=== PATIENT | male | born 1975 | race Hispanic/Latino ===

== ENCOUNTER 2024-04-04 12:53 | Inpatient (IN) | payer OTHER ==
[~2024-04-04] VITALS: Ht 167.6 cm; Wt 85.3 kg
[~2024-04-04 12:53] MED LIST: FAMOTIDINE20 MG PO; ONDANSETRON ODT4 MG PO
[2024-04-04 13:22] LABS: BASOPHILS % 0.2 % (0.0-1.0); EOSINOPHILS # (AUTO) 0.1 (0.0-0.4); EOSINOPHILS % 1.2 % (0.0-6.0); HEMATOCRIT 35.6 % (38.2-49.6); HEMOGLOBIN 13.1 g/dL (14.0-18.0); LYMPHOCYTES # (AUTO) 0.7 (1.0-3.2); LYMPHOCYTES % 6.2 % (18.0-39.1); MEAN CORPUSCULAR HEMOGLOBIN 35.1 pg (28-32); MEAN CORPUSCULAR HGB CONC 36.8 g/dL (31-35); MEAN CORPUSCULAR VOLUME 95.4 fL (81-99); MONOCYTES # (AUTO) 1.2 (0.2-0.8); MONOCYTES % 10.6 % (4.4-11.3); NEUTROPHILS # (AUTO) 9.1 (2.1-6.9); NEUTROPHILS % 81.4 % (38.7-80.0); PLATELET COUNT 139 x10e3/uL (140-360); RED BLOOD COUNT 3.73 x10e6/uL (4.3-5.7); RED CELL DISTRIBUTION WIDTH 15.5 % (11.7-14.4); WHITE BLOOD COUNT 11.21 x10e3/uL (4.8-10.8)
[2024-04-04 13:35] LABS: INR 1.11; PARTIAL THROMBOPLASTIN TIME 34.3 seconds (23.8-35.5); PROTHROMBIN TIME 15.1 seconds (11.9-14.5)
[2024-04-04 13:41] LABS: ABG HCO3 22 mmol/L (22-26); ABG PCO2 20 mmHg (35-45); ABG PH 7.65 (7.35-7.45); ABG PO2 101 mmHg (80-105); ABG TCO2 23
[2024-04-04 13:43] LABS: ALANINE AMINOTRANSFERASE 203 IU/L (0-55); ALBUMIN/GLOBULIN RATIO 0.6 (0.8-2.0); ALKALINE PHOSPHATASE 496 IU/L (40-150); ANION GAP 19.3 mmol/L (8-16); BILIRUBIN,TOTAL 2.8 mg/dL (0.2-1.2); BLOOD UREA NITROGEN < 5 mg/dL (7-26); CALCIUM 8.6 mg/dL (8.4-10.2); CARBON DIOXIDE 20 mmol/L (22-29); CHLORIDE 98 mmol/L (98-107); CREATININE, SERUM 0.74 mg/dL (0.72-1.25); EST GLOMERULAR FILTRATION RATE 112 ML/MIN (>=60); GLUCOSE 114 mg/dL (74-118); SODIUM 134 mmol/L (136-145); TOTAL PROTEIN 8.1 g/dL (6.5-8.1)
[2024-04-04 13:48] LABS: BUN/CREATININE RATIO 7 (6-25); POTASSIUM 3.3 mmol/L (3.5-5.1)
[2024-04-04 13:57] LABS: INFLUENZAE A&B ANTIGEN (RAPID) NEGATIVE (NEGATIVE); RESPIRATORY SYNC. VIRUS NEGATIVE (NEGATIVE)
[2024-04-04] MEDS: IBUPROFEN 400 MG TAB PO ONE (14:49)
[2024-04-04] MEDS: SODIUM CHLORIDE 0.9% 1000ML 1,000 ML IV STA ×2 (14:50)
[2024-04-04 14:56] VITALS: TEMP 99.8
[2024-04-04] MEDS ORDERED: SODIUM CHLORIDE 0.9% 1000ML 1,000 ML IV SCH (16:15)
[2024-04-04 16:21] LABS: BILIRUBIN,URINE MODERATE (NEGATIVE); CLARITY,URINE SL CLOUDY (CLEAR); COLOR,URINE AMBER (YELLOW); GLUCOSE, URINE NEGATIVE (NEGATIVE); KETONES,URINE 1+ (NEGATIVE); LEUKOCYTE ESTERASE ,URINE NEGATIVE (NEGATIVE); NITRITE,URINE NEGATIVE (NEGATIVE); PH,URINE 8.5 (5 - 7); PROTEIN,URINE DIPSTICK 2+ (NEGATIVE); URINE UROBILINOGEN 0.2 mg/dL (0.2 - 1)
[2024-04-04 16:33] LABS: AMORPHOUS SEDIMENT,URINE MODERATE (FEW); BACTERIA,URINE FEW /HPF; WBC,URINE (MAN) 0-5 /HPF (0-5)
[2024-04-04] MEDS ORDERED: ATOVAQUONE 750 MG/5 ML SUSP PO SCH (17:00)
[2024-04-04 17:21] VITALS: PULSE 84; RESP 19
[2024-04-04] MEDS: SODIUM CHLORIDE 0.9% 1000ML 1,000 ML IV SCH (18:33)
[2024-04-04] MEDS: CEFTRIAXONE 2 GM in SODIUM CHLORIDE 0.9% 100 ML IV SCH (18:33)
[2024-04-04 19:41] VITALS: BP 114/71; PULSE 83; RESP 18; TEMP 98.9; O2SAT 96
[2024-04-04 21:00] VITALS: BP 114/71; PULSE 83; RESP 18; TEMP 98.9; O2SAT 96
[2024-04-04] MEDS: ATOVAQUONE 750 MG/5 ML SUSP PO SCH (22:21)
[2024-04-04] MEDS ORDERED: BIKTARVY 50-201 EACH PO (22:26)
[2024-04-04] MEDS ORDERED: PAXIL20 MG PO (22:26)
[2024-04-04] MEDS ORDERED: ONDANSETRON HCL 4 MG ORAL DISINTEGRATING TAB PO PRN (23:45)
[2024-04-04 23:50] VITALS: BP 106/68; PULSE 88; RESP 18; TEMP 98.8; O2SAT 98
[2024-04-05] MEDS: DOXYCYCLINE HYCLATE TABLET 100 MG TAB PO SCH (00:27)
[2024-04-05] MEDS: ONDANSETRON HCL INJ 2MG/ML 2ML 2 MG/ML VIAL IV PRN (00:28)
[2024-04-05 03:39] VITALS: BP 107/73; PULSE 100; RESP 18; TEMP 98.5; O2SAT 99
[2024-04-05 05:42] LABS: BASOPHILS % 0.1 % (0.0-1.0); EOSINOPHILS # (AUTO) 0.3 (0.0-0.4); EOSINOPHILS % 4.3 % (0.0-6.0); HEMATOCRIT 31.7 % (38.2-49.6); HEMOGLOBIN 11.2 g/dL (14.0-18.0); LYMPHOCYTES # (AUTO) 0.6 (1.0-3.2); LYMPHOCYTES % 8.2 % (18.0-39.1); MEAN CORPUSCULAR HEMOGLOBIN 34.7 pg (28-32); MEAN CORPUSCULAR HGB CONC 35.3 g/dL (31-35); MEAN CORPUSCULAR VOLUME 98.1 fL (81-99); MONOCYTES # (AUTO) 0.7 (0.2-0.8); MONOCYTES % 9.3 % (4.4-11.3); NEUTROPHILS # (AUTO) 6.1 (2.1-6.9); NEUTROPHILS % 77.5 % (38.7-80.0); PLATELET COUNT 112 x10e3/uL (140-360); RED BLOOD COUNT 3.23 x10e6/uL (4.3-5.7); RED CELL DISTRIBUTION WIDTH 16.2 % (11.7-14.4); WHITE BLOOD COUNT 7.83 x10e3/uL (4.8-10.8)
[2024-04-05 06:14] LABS: ALBUMIN 2.3 g/dL (3.5-5.0); ALBUMIN/GLOBULIN RATIO 0.6 (0.8-2.0); CALCIUM 7.9 mg/dL (8.4-10.2); CREATININE, SERUM 0.59 mg/dL (0.72-1.25); TOTAL PROTEIN 6.3 g/dL (6.5-8.1)
[2024-04-05 06:33] LABS: BILIRUBIN,TOTAL 1.8 mg/dL (0.2-1.2)
[2024-04-05 06:35] LABS: POTASSIUM 3.3 mmol/L (3.5-5.1)
[2024-04-05 07:52] VITALS: BP 108/73; PULSE 83; RESP 18; TEMP 98.4; O2SAT 99
[2024-04-05 08:21] LABS: ANION GAP 14.3 mmol/L (8-16)
[2024-04-05] MEDS ORDERED: DOXYCYCLINE HYCLATE TABLET 100 MG TAB PO SCH (09:00)
[2024-04-05 09:14] LABS: CREATINE KINASE 77 IU/L (30-200)
[2024-04-05 09:18] LABS: TROPONIN I < 0.001 ng/mL (0-0.300)
[2024-04-05] MEDS: PAROXETINE HCL 20 MG TAB PO SCH (09:59)
[2024-04-05] MEDS: FAMOTIDINE 20 MG TAB PO SCH (09:59)
[2024-04-05] MEDS: CYCLOBENZAPRINE HCL 10 MG TAB PO PRN (10:03)
[2024-04-05 12:46] VITALS: BP 113/80; PULSE 78; RESP 18; TEMP 98.6; O2SAT 99
[2024-04-05 15:51] VITALS: BP 115/88; PULSE 91; RESP 18; TEMP 98.6; O2SAT 99
[2024-04-05 16:34] LABS: CREATINE KINASE 88 IU/L (30-200)
[2024-04-05 16:41] LABS: TROPONIN I < 0.001 ng/mL (0-0.300)
[2024-04-05 19:27] VITALS: BP 127/82; PULSE 88; RESP 18; TEMP 99.1; O2SAT 100
[2024-04-05 20:54] LABS: HEPATITIS B SURFACE AG (P) Nonreactive; HEPATITIS C ANTIBODY Nonreactive
[2024-04-05 23:42] VITALS: BP 117/84; PULSE 83; RESP 18; TEMP 99.4; O2SAT 98
[2024-04-06] VITALS (7 sets, daily range): BP systolic 112–126; BP diastolic 79–91; PULSE 79–82; RESP 18–20; TEMP 98.5–98.8; O2SAT 98–100
[2024-04-06 07:15] LABS: HEMATOCRIT 32.4 % (38.2-49.6); HEMOGLOBIN 11.4 g/dL (14.0-18.0); MEAN CORPUSCULAR HEMOGLOBIN 35.3 pg (28-32); MEAN CORPUSCULAR HGB CONC 35.2 g/dL (31-35); MEAN CORPUSCULAR VOLUME 100.3 fL (81-99); RED BLOOD COUNT 3.23 x10e6/uL (4.3-5.7); RED CELL DISTRIBUTION WIDTH 16.9 % (11.7-14.4)
[2024-04-06 07:16] LABS: BASOPHILS % 0.3 % (0.0-1.0); EOSINOPHILS # (AUTO) 0.5 (0.0-0.4); EOSINOPHILS % 5.4 % (0.0-6.0); LYMPHOCYTES # (AUTO) 0.8 (1.0-3.2); LYMPHOCYTES % 8.5 % (18.0-39.1); MONOCYTES # (AUTO) 0.6 (0.2-0.8); MONOCYTES % 6.5 % (4.4-11.3); NEUTROPHILS # (AUTO) 7.7 (2.1-6.9); NEUTROPHILS % 78.8 % (38.7-80.0); PLATELET COUNT 100 x10e3/uL (140-360)
[2024-04-06 07:18] LABS: ANION GAP 15.6 mmol/L (8-16); POTASSIUM 3.6 mmol/L (3.5-5.1)
[2024-04-06 07:19] LABS: CREATININE, SERUM 0.64 mg/dL (0.72-1.25)
[2024-04-06 07:20] LABS: CALCIUM 7.6 mg/dL (8.4-10.2)
[2024-04-06 07:54] LABS: BILIRUBIN,DIRECT 1.5 mg/dL (0.0-0.5); BILIRUBIN,TOTAL 2.3 mg/dL (0.2-1.2); TOTAL PROTEIN 6.2 g/dL (6.5-8.1)
[2024-04-06 08:14] LABS: ALBUMIN 2.2 g/dL (3.5-5.0)
[2024-04-06] MEDS: SODIUM BICARBONATE 650 MG TAB PO SCH (09:43)
[2024-04-06 13:15] LABS: % CD 4 POSITIVE LYMPHOCYTES 3.4 % (30.8-58.5)
[2024-04-06] MEDS: CEFTRIAXONE 2 GM in SODIUM CHLORIDE 0.9% 100 ML IV SCH (17:30)
[2024-04-07] VITALS (7 sets, daily range): BP systolic 110–123; BP diastolic 75–88; PULSE 76–83; RESP 16–20; TEMP 98.6–99.6; O2SAT 98–100
[2024-04-07 07:26] LABS: BASOPHILS % 0.3 % (0.0-1.0); EOSINOPHILS # (AUTO) 0.6 (0.0-0.4); EOSINOPHILS % 6.3 % (0.0-6.0); HEMOGLOBIN 11.3 g/dL (14.0-18.0); LYMPHOCYTES # (AUTO) 0.7 (1.0-3.2); LYMPHOCYTES % 7.7 % (18.0-39.1); MEAN CORPUSCULAR HEMOGLOBIN 36.2 pg (28-32); MEAN CORPUSCULAR HGB CONC 36.5 g/dL (31-35); MEAN CORPUSCULAR VOLUME 99.4 fL (81-99); MONOCYTES # (AUTO) 0.6 (0.2-0.8); NEUTROPHILS # (AUTO) 7.3 (2.1-6.9); NEUTROPHILS % 79.2 % (38.7-80.0); PLATELET COUNT 105 x10e3/uL (140-360); RED BLOOD COUNT 3.12 x10e6/uL (4.3-5.7); WHITE BLOOD COUNT 9.22 x10e3/uL (4.8-10.8)
[2024-04-07 07:45] LABS: ANION GAP 14.4 mmol/L (8-16); CALCIUM 7.7 mg/dL (8.4-10.2); CREATININE, SERUM 0.57 mg/dL (0.72-1.25)
[2024-04-07 07:49] LABS: POTASSIUM 3.4 mmol/L (3.5-5.1)
[2024-04-07] MEDS: ACETAMINOPHEN 325 MG TAB PO PRN (15:14)
[2024-04-07] MEDS: SODIUM BICARBONATE 650 MG TAB PO SCH (15:14)
[2024-04-08] VITALS: BP 122/84; PULSE 80; RESP 18; TEMP 99.6; O2SAT 100
[2024-04-08 08:00] VITALS: BP 120/81; PULSE 90; RESP 17; TEMP 98.7; O2SAT 99
[2024-04-08 08:29] VITALS: BP 120/81; PULSE 90; RESP 17; TEMP 98.7; O2SAT 100
[2024-04-08 12:50] VITALS: BP 135/75; PULSE 92; RESP 17; TEMP 98.6; O2SAT 99
[2024-04-08] MEDS ORDERED: SODIUM BICARBO650 MG PO (14:51)
[2024-04-08] MEDS ORDERED: ATOVAQUONE750 MG/5 M PO (14:53)
[2024-04-08] MEDS ORDERED: ONDANSETRON ODT4 MG PO (14:53)
[2024-04-14 18:07] LABS: ABG HCO3 22 mmol/L (22-26); ABG PCO2 20 mmHg (35-45); ABG PH 7.65 (7.35-7.45); ABG PO2 101 mmHg (80-105); ABG TCO2 23
== END 2024-04-08 16:16 | disposition home or self-care (01) | DRG 975 ==
LOC: ER 13:00 → ERHOLD 16:17 → MED/SURG3 17:59
PROVIDERS: ADMIT Internal Medicine; ATTEND Internal Medicine
PROC: 3E0333Z Introduction of Anti-inflammatory into Peripheral Vein, Percutaneous Approach (ICD-10-PCS; principal; 2024-04-04)
PROC: 4A133R1 Monitoring of Arterial Saturation, Peripheral, Percutaneous Approach (ICD-10-PCS; 2024-04-04)
DX: A41.9 Sepsis, unspecified organism (principal); E87.20 Acidosis, unspecified; B20 Human immunodeficiency virus [HIV] disease; R65.20 Severe sepsis without septic shock; J20.9 Acute bronchitis, unspecified; R16.1 Splenomegaly, not elsewhere classified; R91.1 Solitary pulmonary nodule; D64.9 Anemia, unspecified; D69.6 Thrombocytopenia, unspecified; E66.9 Obesity, unspecified; Z68.30 Body mass index [BMI] 30.0-30.9, adult; R74.01 Elevation of levels of liver transaminase levels; Z11.52 Encounter for screening for COVID-19; Z91.141 Patient's other noncompliance with medication regimen due to financial hardship; Z90.49 Acquired absence of other specified parts of digestive tract; Z86.16 Personal history of COVID-19; Z88.1 Allergy status to other antibiotic agents; Z88.2 Allergy status to sulfonamides; Z88.5 Allergy status to narcotic agent; F17.210 Nicotine dependence, cigarettes, uncomplicated
CPT/HCPCS: 36415; 36600; 71045; 71260; 74177; 80048; 80053; 80061; 80076; 81001; 82550; 82805; 83036; 83605; 84484; 85025; 85610; 85730; 86361; 87040; 87086; 87400; 87420; 87536; 93005; 94760; 99285; J0696; J2405; J2543; J7030; J7050; Q0162; U0002

== ENCOUNTER 2024-05-01 01:12 | Emergency (ER) | payer OTHER ==
[~2024-05-01] VITALS: Ht 167.6 cm; Wt 85.3 kg
[~2024-05-01 01:12] MED LIST changes: +ATOVAQUONE750 MG/5 M PO; +BIKTARVY 50-201 EACH PO; +PAXIL20 MG PO; +SODIUM BICARBO650 MG PO
[2024-05-01 01:16] VITALS: TEMP 98.5
[2024-05-01] MEDS: SODIUM CHLORIDE 0.9% 1000ML 2,000 ML IV STA (01:25)
[2024-05-01 01:29] LABS: BASOPHILS % 0.3 % (0.0-1.0); EOSINOPHILS # (AUTO) 0.1 (0.0-0.4); EOSINOPHILS % 1.1 % (0.0-6.0); HEMATOCRIT 36.4 % (38.2-49.6); HEMOGLOBIN 12.9 g/dL (14.0-18.0); LYMPHOCYTES # (AUTO) 1.4 (1.0-3.2); LYMPHOCYTES % 11.9 % (18.0-39.1); MEAN CORPUSCULAR HEMOGLOBIN 36.9 pg (28-32); MEAN CORPUSCULAR HGB CONC 35.4 g/dL (31-35); MONOCYTES # (AUTO) 1.2 (0.2-0.8); MONOCYTES % 10.1 % (4.4-11.3); NEUTROPHILS # (AUTO) 9.1 (2.1-6.9); NEUTROPHILS % 76.1 % (38.7-80.0); PLATELET COUNT 156 x10e3/uL (140-360); RED CELL DISTRIBUTION WIDTH 16.6 % (11.7-14.4); WHITE BLOOD COUNT 11.99 x10e3/uL (4.8-10.8)
[2024-05-01 01:58] LABS: ALANINE AMINOTRANSFERASE 107 IU/L (0-55); ALBUMIN 3.3 g/dL (3.5-5.0); ALBUMIN/GLOBULIN RATIO 0.6 (0.8-2.0); ALKALINE PHOSPHATASE 443 IU/L (40-150); ANION GAP 15.6 mmol/L (8-16); BILIRUBIN,TOTAL 1.8 mg/dL (0.2-1.2); BLOOD UREA NITROGEN < 5 mg/dL (7-26); BUN/CREATININE RATIO 8 (6-25); CALCIUM 8.4 mg/dL (8.4-10.2); CARBON DIOXIDE 24 mmol/L (22-29); CHLORIDE 100 mmol/L (98-107); CREATININE, SERUM 0.61 mg/dL (0.72-1.25); EST GLOMERULAR FILTRATION RATE 119 ML/MIN (>=60); GLUCOSE 109 mg/dL (74-118); POTASSIUM 3.6 mmol/L (3.5-5.1); SODIUM 136 mmol/L (136-145); TOTAL PROTEIN 8.5 g/dL (6.5-8.1)
[2024-05-01] MEDS: ONDANSETRON HCL INJ 2MG/ML 2ML 2 MG/ML VIAL IV STA (02:23)
[2024-05-01] MEDS: KETOROLAC TROMETHAMINE 30 MG/ML VIAL IV STA (02:23)
[2024-05-01] MEDS: SODIUM CHLORIDE 0.9% 1000ML 1,000 ML IV ONE (02:23)
[2024-05-01 03:00] VITALS: PULSE 91; RESP 18
[2024-05-01 03:21] LABS: BILIRUBIN,URINE NEGATIVE (NEGATIVE); CLARITY,URINE CLEAR (CLEAR); COLOR,URINE YELLOW (YELLOW); GLUCOSE, URINE NEGATIVE (NEGATIVE); KETONES,URINE NEGATIVE (NEGATIVE); LEUKOCYTE ESTERASE ,URINE NEGATIVE (NEGATIVE); NITRITE,URINE NEGATIVE (NEGATIVE); PH,URINE 5.5 (5 - 7); PROTEIN,URINE DIPSTICK NEGATIVE (NEGATIVE); URINE UROBILINOGEN 0.2 mg/dL (0.2 - 1)
[2024-05-01 03:25] VITALS: BP 121/84; PULSE 89; RESP 17; TEMP 98.5; O2SAT 100
[2024-05-01] MEDS ORDERED: KETOROLAC TROME10 MG PO (03:30)
[2024-05-01] MEDS ORDERED: PROMETHAZINE HC25 M1 PO (03:30)
[2024-05-01] MEDS ORDERED: ACETAMINOPHEN-1 EAC4 PO (03:30)
[2024-05-01 03:32] LABS: BACTERIA,URINE FEW /HPF; EPITHELIAL CELLS,URINE FEW /LPF; WBC,URINE (MAN) 0-5 /HPF (0-5)
[2024-05-01] MEDS ORDERED: IOPAMIDOL 370 MG/ML 100 ML INFUS..BTL INJ ONE (06:00)
== END 2024-05-01 03:33 | disposition home or self-care (01) ==
LOC: ER 01:18
DX: R10.31 Right lower quadrant pain (principal); B20 Human immunodeficiency virus [HIV] disease; F10.129 Alcohol abuse with intoxication, unspecified
CPT/HCPCS: 36415; 74177; 80053; 80320; 81001; 83690; 85025; 99284; J1885; J2405; J7030; Q9967

== ENCOUNTER 2025-01-23 14:56 | Emergency (ER) | payer OTHER ==
[~2025-01-23] VITALS: Ht 167.6 cm; Wt 85.3 kg
[~2025-01-23 14:56] MED LIST changes: +ACETAMINOPHEN-1 EAC4 PO; +KETOROLAC TROME10 MG PO; +PROMETHAZINE HC25 M1 PO
[2025-01-23 15:05] VITALS: PULSE 102; RESP 17; TEMP 99.7; O2SAT 98
[2025-01-23] MEDS ORDERED: ULTRAM 50MG50 MG PO (15:36)
== END 2025-01-23 15:46 | disposition home or self-care (01) ==
LOC: ER 15:21
DX: R21 Rash and other nonspecific skin eruption (principal); B20 Human immunodeficiency virus [HIV] disease
CPT/HCPCS: 99282